=== PATIENT | female | born 1955 | race Hispanic/Latino ===

== ENCOUNTER 2017-12-31 12:43 | Emergency (ER) | payer MEDICARE, BC ==
[2017-12-31 12:55] VITALS: RESP 18; TEMP 98.3; BMI 26.5
--- NOTE | 2017-12-31 13:11 | ED PDOC ---
Arrival/HPI - General Chief Complaint: Hip Pain Time Seen by Provider: 12/31/17 12:45 Historian: Patient - History of Present Illness Narrative History of Present Illness (Text): 12/31/17 13:07 62 year old female, whose past medical history includes a rt femur injury in the 1970s, and a rt knee injury several years ago, who presents to the emergency department complaining of rt hip pain for past 3-4 days. Patient describes pain as a shooting pain that moves down the rt leg. Pain is worse with specific movements. She denies trauma. She states pain worse with ambulation. Denies swelling. Denies numbness or new weakness. Patient states she took Advil with no relief. Patient denies any fever, chills, chest pain, shortness of breath, or calf pain. Denies any foot discoloration. States she awoke three days ago feeling the pain. Time/Duration: < week Symptom Onset: Gradual Symptom Course: Unchanged Activities at Onset: Light Context: Home Past Medical History - Provider Review Nursing Documentation Reviewed: Yes - Infectious Disease Hx of Infectious Diseases: None - Tetanus Immunization Tetanus Immunization: Unknown - Cardiac Hx Pacemaker: No - Neurological Hx Paralysis: No - Hematological/Oncological Hx Blood Transfusions: No Hx Cancer: Yes (L breast CA) - Musculoskeletal/Rheumatological Hx Musculoskeletal Disorders: Yes (OSTEOPENIA) - Psychiatric Hx Emotional Abuse: No Hx Physical Abuse: No Hx Substance Use: No - Surgical History Hx Orthopedic Surgery: Yes (right great toe, right foot) Other/Comment: L breast lumpectomy - Anesthesia Hx Anesthesia: Yes Hx Anesthesia Reactions: No Hx Malignant Hyperthermia: No - Suicidal Assessment Feels Threatened In Home Enviroment: No Family/Social History - Physician Review Nursing Documentation Reviewed: Yes Family/Social History: Unknown Family HX Smoking Status: Never Smoked Hx Alcohol Use: No Hx Substance Use: No Hx Substance Use Treatment: No Allergies/Home Meds Allergies/Adverse Reactions: Allergies Penicillins Allergy (Verified 12/31/17 13:07) RASH Home Medications: Home Meds Medication Instructions Recorded Confirmed Raloxifene HCl [Evista] 60 mg PO DAILY 03/28/14 12/31/17 Review of Systems - Review of Systems Constitutional: absent: Fevers Respiratory: absent: SOB Cardiovascular: absent: Chest Pain, COSME Gastrointestinal: absent: Abdominal Pain Musculoskeletal: Other (right hip pain radiating down right leg). absent: Back Pain, Neck Pain Skin: absent: Rash Neurological: absent: Headache, Dizziness Hemo/Lymphatic: absent: Easy Bleeding Physical Exam - Physical Exam Narrative Physical Exam (Text): 12/31/17 14:03 Head: Atraumatic. Normocephalic. ENT: No facial bony tenderness or swelling. Neck: Supple. Full ROM. Cardiovascular: Regular rate. Regular rhythm. Distal pulses are 2+ and symmetric. Pulmonary/Chest: No evidence of respiratory distress. Abdominal: Soft and non-distended. There is no tenderness. Back: No CVA tenderness. No midline thoracic, no midline lumbar pain. No pain with straight leg testing. Extremities: No edema. No cyanosis. No clubbing. Full range of motion in all extremities. No calf tenderness. There is brace noted to right lower leg but no calf pain or erythema or edema. There is focal pain on palpation of right lateral hip with no soft tissue swelling or rash noted. There is mild pain with rotation of right hip. NO knee pain with range of motion. Prior surgical scar noted. Skin: Skin is warm and dry. No petechiae. No purpura. Neurological: Alert, awake, and oriented. Motor and sensory exam intact with no neurovascular deficits. Psychiatric: Good eye contact. Normal interaction, affect, and behavior. Vital Signs Reviewed: Yes Vital Signs Temp Pulse Resp BP Pulse Ox 12/31/17 12:55 98.3 F 60 18 145/72 100 Temperature: Afebrile Appearance: Positive for: Non-Toxic, Uncomfortable Pain Distress: Mild Mental Status: Positive for: Alert and Oriented X 3 Medical Decision Making ED Course and Treatment: 12/31/17 13:11 Impression: 62 year old female presents to the emergency department complaining of rt hip pain for several days with no trauma noted. Plan: -- Xray Rt Hip -- Reassess and disposition Progress Notes: On my exam she has palpable pain worse with movements. She has no abdominal pain. No warmth or swelling. No pulse deficits. No acute knee pain. No pain with straight leg testing. She wears a brace to right leg for history of "foot drop" but denies any calf pain or new numbness or weakness. Patient has had prior surgery to right femur she states in 1970s with "lore was in my leg but it was removed". Xray reveals no hip fracture although degenerative changes noted with no dislocation or nv deficits noted. 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 I reviewed xray findings with patient and reviewed abnormalities, stressed need for orthopedic follow-up. She is ambulatory without difficulty on discharge. Had a discussion with pt regarding pain medication. Patient states Percocet has been effective in the past with previous rt femur and rt knee injury. She is rae re of risks/side effects of medication. She will follow-up with her orthopedic physician and PMD. 12/31/17 14:26 I performed follow-up phone call with patient on 01/03, at 1030 am. I again reviewed xray findings as well as radiologist interpretation of patient's xrays. She states that hip pain is better with medication but persistent and at times severe. She states she is ambulating without much difficulty, but at times has pain when moving into a car. She states she had follow-up with Dr. Restrepo yesterday, who sent her for additional xrays and ultrasound. I was able to access the reports for xrays obtained yesterday and reviewed them with patient. She has follow-up appointment with dominguez Ziegler, this coming Monday. As she is having persistent pain, and given previously noted hip xray abnormalities, I have advised return to ER for further imaging of hip as patient's pain is persistent. Patient states she will return to ER for re-evaluation this afternoon. ER notified. 01/03/18 10:39 - Scribe Statement The provider has reviewed the documentation as recorded by the Kazibe Alma Delia Smith All medical record entries made by the Kazibdaron were at my direction and personally dictated by me. I have reviewed the chart and agree that the record accurately reflects my personal performance of the history, physical exam, medical decision making, and the department course for this patient. I have also personally directed, reviewed, and agree with the discharge instructions and disposition. Disposition/Present on Arrival - Present on Arrival Any Indicators Present on Arrival: No History of DVT/PE: No History of Uncontrolled Diabetes: No Urinary Catheter: No History of Decub. Ulcer: No History Surgical Site Infection Following: None - Disposition Have Diagnosis and Disposition been Completed?: Yes Diagnosis: Right hip pain, Sciatica Disposition: HOME/ ROUTINE Disposition Time: 14:30 Patient Plan: Discharge Condition: GOOD Discharge Instructions (ExitCare): Sciatica (DC), Hip Pain (DC) Additional Instructions: Please follow-up with an orthopedic physician as discussed. Rest. No strenuous activity. For any weakness, swelling, increase in pain, any numbness, any persistent or worsening of symptoms, get rechecked. Follow-up with your physician in 1-2 days. Take pain medication only as directed. Prescriptions: oxyCODONE/Acetaminophen [Percocet 5/325 mg Tab] 1 ea PO Q6 PRN #10 tab PRN Reason: severe pain Forms: [employer] (Greenlandic)
[2017-12-31 14:08] VITALS: BP 124/73; PULSE 58; O2SAT 99
--- NOTE | 2017-12-31 16:56 | RAD ---
PROCEDURE: Right Hip Radiographs. HISTORY: right hip pain COMPARISON: None. FINDINGS: BONES: No fracture. 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 JOINTS: Possible ankylosis at symphysis pubis. Hips and sacroiliac joints appear preserved. SOFT TISSUES: Normal. OTHER FINDINGS: None. IMPRESSION: No acute fracture.
== END 2017-12-31 14:50 | disposition home or self-care (01) ==
LOC: ED 12:43
DX: M25.551 Pain in right hip (principal); M54.30 Sciatica, unspecified side; Z85.3 Personal history of malignant neoplasm of breast

== ENCOUNTER 2018-01-03 12:11 | Emergency (ER) | payer MEDICARE, BC ==
[2018-01-03 12:12] VITALS: BMI 26.5
[2018-01-03 12:35] VITALS: RESP 18; TEMP 98.1
--- NOTE | 2018-01-03 12:42 | ED PDOC ---
Arrival/HPI - General Chief Complaint: Hip Pain Time Seen by Provider: 01/03/18 12:21 Historian: Patient - History of Present Illness Narrative History of Present Illness (Text): 01/03/18 12:46 A 62 year old female, whose past medical history includes right femur injury in the 1970s, and a right knee injury several years ago, is sent to the emergency department by Dr. Julien for CT of the right hip. 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 Patient notes experiencing continued hip pain. Patient denies any numbness/weakness/tingling to the right hip region, no trauma/injury, or any other complaints at this time. Also, patient mentions having a Cordizone injection to her right knee some time this year in September/October, and denies any other steroid injections/intakes. No PMD Past Medical History - Provider Review Nursing Documentation Reviewed: Yes - Infectious Disease Hx of Infectious Diseases: None - Tetanus Immunization Tetanus Immunization: Unknown - Cardiac Hx Pacemaker: No - Neurological Hx Paralysis: No - Hematological/Oncological Hx Blood Transfusions: No Hx Cancer: Yes (L breast CA) - Musculoskeletal/Rheumatological Hx Musculoskeletal Disorders: Yes (OSTEOPENIA) - Psychiatric Hx Emotional Abuse: No Hx Physical Abuse: No Hx Substance Use: No - Surgical History Hx Orthopedic Surgery: Yes (right great toe, right foot) Other/Comment: L breast lumpectomy - Anesthesia Hx Anesthesia: Yes Hx Anesthesia Reactions: No Hx Malignant Hyperthermia: No - Suicidal Assessment Feels Threatened In Home Enviroment: No Family/Social History - Physician Review Nursing Documentation Reviewed: Yes Family/Social History: No Known Family HX Smoking Status: Never Smoked Hx Alcohol Use: No Hx Substance Use: No Hx Substance Use Treatment: No Allergies/Home Meds Allergies/Adverse Reactions: Allergies Penicillins Allergy (Verified 01/03/18 12:35) RASH Home Medications: Home Meds Medication Instructions Recorded Confirmed Raloxifene HCl [Evista] 60 mg PO DAILY 03/28/14 01/03/18 Review of Systems - Physician Review All systems were reviewed & negative as marked: Yes - Review of Systems Constitutional: absent: Fatigue, Fevers Respiratory: absent: SOB, Cough Cardiovascular: absent: Chest Pain, Palpitations Gastrointestinal: absent: Abdominal Pain, Nausea, Vomiting Genitourinary Female: absent: Dysuria Musculoskeletal: Arthralgias, Other (right hip pain; no trauma/injury to region). absent: Back Pain, Neck Pain Skin: absent: Rash, Pruritis Neurological: absent: Headache, Dizziness, Other (no numbness/tingling/weakness) Psychiatric: absent: Anxiety, Depression Physical Exam Vital Signs Reviewed: Yes Vital Signs Temp Pulse Resp BP Pulse Ox 01/03/18 12:34 98.1 F 70 18 132/79 99 Temperature: Afebrile Blood Pressure: Normal Pulse: Regular Respiratory Rate: Normal Appearance: Positive for: Well-Appearing, Non-Toxic, Comfortable Pain Distress: None Mental Status: Positive for: Alert and Oriented X 3 - Systems Exam Head: Present: Atraumatic, Normocephalic Respiratory/Chest: Present: Clear to Auscultation, Good Air Exchange. No: Respiratory Distress, Accessory Muscle Use Cardiovascular: Present: Regular Rate and Rhythm, Normal S1, S2. No: Murmurs Abdomen: No: Tenderness, Distention, Peritoneal Signs Upper Extremity: Present: Normal Inspection. No: Cyanosis, Edema Lower Extremity: Present: Normal ROM (full ROM of right hip; pelvis is stable.), Tenderness (minimal tenderness to posterior aspect of the right hip). No: Edema, Erythema Neurological: Present: GCS=15, CN II-XII Intact, Speech Normal Skin: Present: Warm, Dry, Normal Color, Other (large linear scar to lateral aspect of femur (no sings of infection to the site).). No: Rashes Psychiatric: Present: Alert, Oriented x 3, Normal Insight, Normal Concentration Medical Decision Making ED Course and Treatment: 01/03/18 12:49 Impression: 62 year old female with continued right hip pain since last visit on 12/31/2017. Physical exam shows minimal tenderness to the posterior aspect of the right hip, full ROM, no erythema, no edema, pelvis is stable, patient appears to have a large linear scar to the lateral aspect of the femur (no signs of infection to site). Cardiac, pulmonary, and abdomen exam normal findings; no other acute findings on examination. Plan: -- Right Hip CT without contrast -- Reassess and disposition Prior Visits: Notes and results from previous visits were reviewed. Patient was last seen in the emergency department on 12/31/2017 for right hip pain. Patient was d ischarged home. Progress Notes: 01/03/18 14:12 ct right hip; FINDINGS: CT of the right femur was performed from the hip joint to a level above the knee. The right hip is unremarkable with no fracture or degenerative change. There is an old fracture deformity of the distal femur and evidence of a previous intramedullary lore. There is no acute fracture. IMPRESSION: No acute findings pt is non toxic well appearing; no distress. pt has f/u with orthopedist (dr. isabel Nation) on monday. cane given for ambulation. advised immediate return if symptoms worsen, persist or if new symptoms develop. Patient verbalizes understanding of discharge instructions and need for immediate followup. all aspects of this case were discussed the attending of record. impression; hip pain motrin every 6 hours as needed for pain percocet; 1 tablet every 6 hours as needed for moderate to severe pain; may cause drowsiness follow up with the orthopedist within the next 2 days. Use cane for ambulation return if symptoms worsen,persist or if new symptoms develop - RAD Interpretation Radiology Orders: 01/03/18 12:40 EXT LOWER W/O CONTRAST RIGHT [CT] Stat - Scribe Statement The provider has reviewed the documentation as recorded by the Kazibdaron Saenz Provider Scribe Attestation: All medical record entries made by the Scribe were at my direction and personally dictated by me. I have reviewed the chart and agree that the record accurately reflects my personal performance of the history, physical exam, medical decision making, and the department course for this patient. I have also personally directed, reviewed, and agree with the discharge instructions and disposition. Disposition/Present on Arrival - Present on Arrival Any Indicators Present on Arrival: No History of DVT/PE: No History of Uncontrolled Diabetes: No Urinary Catheter: No History of Decub. Ulcer: No History Surgical Site Infection Following: None - Disposition Have Diagnosis and Disposition been Completed?: Yes Diagnosis: Hip pain Disposition: HOME/ ROUTINE Disposition Time: 13:20 Patient Plan: Discharge Condition: GOOD Discharge Instructions (ExitCare): Hip Pain (DC) Additional Instructions: motrin every 6 hours as needed for pain percocet; 1 tablet every 6 hours as needed for moderate to severe pain; may cause drowsiness follow up with the orthopedist within the next 2 days. Use cane for ambulation return if symptoms worsen,persist or if new symptoms develop Prescriptions: Ibuprofen [Motrin] 600 mg PO Q6H PRN #20 tab PRN Reason: pain/fever reduction oxyCODONE/Acetaminophen [Percocet 5/325 mg Tab] 1 tab PO Q6H PRN #6 tab PRN Reason: moderate to severe pain Referrals: Artemio Restrepo MD [Family Provider] - Follow up with primary Farhad Nation MD [Staff Provider] - Follow up with primary Forms: [employer] (Prydeinig)
--- NOTE | 2018-01-03 14:01 | CT ---
Date of service: 01/03/2018 PROCEDURE: CT of the right hip and femur without contrast HISTORY: right hip pain COMPARISON: TECHNIQUE: Radiation dose: Total exam DLP = 388.69 mGy-cm. This CT exam was performed using one or more of the following dose reduction techniques: Automated exposure control, adjustment of the mA and/or kV according to patient size, and/or use of iterative reconstruction technique. FINDINGS: CT of the right femur was performed from the hip joint to a level above the knee. The right hip is unremarkable with no fracture or degenerative change. There is an old fracture deformity of the distal femur and evidence of a previous intramedullary lore. There is no acute fracture. IMPRESSION: No acute findings
[2018-01-03 14:19] VITALS: BP 126/69; PULSE 65; O2SAT 98
== END 2018-01-03 14:45 | disposition home or self-care (01) ==
LOC: ED 12:11
DX: M25.551 Pain in right hip (principal)
CPT/HCPCS: 73700; 96372; 99285; J1885

== ENCOUNTER 2018-08-14 21:03 | Emergency (ER) | payer OTHER, BC ==
[2018-08-14 21:03] VITALS: BMI 26.5
[2018-08-14 22:47] VITALS: RESP 18
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
[2018-08-14 23:59] VITALS: BP 103/77; PULSE 63; TEMP 97.6; O2SAT 99
--- NOTE | 2018-08-15 08:29 | RAD ---
Date of service: 08/14/2018 PROCEDURE: Right Thumb radiographs. HISTORY: injury 08/11 COMPARISON: None. TECHNIQUE: AP radiograph of the right hand, as well as spot oblique and lateral images of thumb were obtained. 3 views obtained. FINDINGS: RIGHT THUMB: No acute fracture or destructive bony lesion identified right thumb. Remainder of the right hand (as seen on the AP view) grossly unremarkable. JOINTS: No subluxation or dislocation identified. SOFT TISSUES: Normal. OTHER FINDINGS: None. IMPRESSION: Unremarkable right thumb radiographs.
== END 2018-08-14 23:59 | disposition home or self-care (01) ==
LOC: ED 21:03
DX: S63.601A Unspecified sprain of right thumb, initial encounter (principal); Y04.0XXA Assault by unarmed brawl or fight, initial encounter